=== PATIENT | female | born 1935 | race Asian ===

== ENCOUNTER 2017-12-27 20:42 | Inpatient (IN) | payer OTHER ==
[~2017-12-27] VITALS: Ht 152.4 cm; Wt 59.9 kg
--- NOTE | 2017-12-27 20:44 | NUR ---
Dr. Tolentino evaluating patient at bedside.
--- NOTE | 2017-12-27 20:44 | NUR ---
Patient BIBA ACLS accompanied by LACoFD, transferred to bed 10. RN evaluating patient at bedside.
[2017-12-27 20:45] VITALS: BP 190/81
--- NOTE | 2017-12-27 20:45 | NUR ---
PT YINKA 911 was called per VISIT AT urgent care WHERE PATIENT WAS INCREASINGLY SOB, nebs x 2 en route. WHEN EMS ARRIVED PT WAS 96% ON RA. DAUGHTER states pt has had a recent cold. ON ARRIVAL TO HOSPITAL PT IS A/OX3, WITH LABORED BREATHING AND RHONCHI AND WHEEZES THROUGHOUT BILAT LUNGS UPPER AND LOWER LOBES. NOT ORIENTED TO YEAR DUE TO DEMENTIA WHICH IS BASELINE FOR PT. RT CALLED WIRELESS NETWORK ENGINEER AND WERE AWAITING PT ARRIVAL. Hx: COPD, DEMENTIA, HTN PT DENIES N/V/D; SKIN IS INTACT, PINK/WARM/DRY; AAOX3, PERRL, USES WHEELCHAIR; HR TACHYCARDIC, BL PERIPHERAL PULSES PRESENT; BS ACTIVE X4, NO TENDERNESS TO PALPATION, NO HEPATOSPLENOMEGALLY PALPATED, RESONANT TO PERCUSSION; PT DENIES ANY FEVER, CP, ADMITS TO SOB AND COUGH AT THIS TIME; PT STATES 0/10 PAIN AT THIS TIME; VSS; PATIENT POSITIONED FOR COMFORT; HOB ELEVATED; BEDRAILS UP X2; BED DOWN.
[2017-12-27] MEDS ORDERED: ALBUTEROL SULFATE/IPRATROPIU 3 ML SOL IH ONE (20:50)
[2017-12-27] MEDS ORDERED: NACL 0.9% 1,000 ML IV ONE (20:50)
[2017-12-27 21:07] LABS: BASOPHILS # (AUTO) 0.1 K/uL (0.00-0.22); BASOPHILS % (AUTO) 0.7 % (0.0-2.0); EOSINOPHILS # (AUTO) 1.1 K/uL (0-0.4); EOSINOPHILS % (AUTO) 11.1 % (0.0-4.0); HEMATOCRIT 43.2 % (36-48); HEMOGLOBIN 15.1 g/dL (12.0-16.0); LYMPHOCYTES # (AUTO) 1.7 K/uL (2.5-16.5); LYMPHOCYTES % (AUTO) 17.8 % (20.5-51.1); MEAN CORPUSCULAR HEMOGLOBIN 32 pg (27-31); MEAN CORPUSCULAR HGB CONC 35 g/dL (33-37); MEAN CORPUSCULAR VOLUME 90.9 fL (80-94); MONOCYTES # (AUTO) 0.5 K/uL (0.8-1.0); MONOCYTES % (AUTO) 5.7 % (1.7-9.3); NEUTROPHILS # (AUTO) 6.1 K/uL (1.8-7.7); NEUTROPHILS % (AUTO) 64.7 % (42.2-75.2); PLATELET COUNT (AUTO) 289 K/uL (140-450); RED BLOOD CELL COUNT(AUTO) 4.75 MIL/uL (4.20-5.40); RED CELL DISTRIBUTION WIDTH 12.3 % (11.6-13.7); WHITE BLOOD COUNT (AUTO) 9.5 K/uL (4.8-10.8)
[2017-12-27] MEDS ORDERED: PRON INH (21:21)
[2017-12-27] MEDS ORDERED: FLEC100T1 PO (21:21)
[2017-12-27] MEDS ORDERED: FLUT1BLS IH (21:21)
[2017-12-27] MEDS ORDERED: ATOR10TA PO (21:21)
[2017-12-27] MEDS ORDERED: RALO60TA PO (21:21)
[2017-12-27] MEDS ORDERED: DABI150C PO (21:21)
[2017-12-27] MEDS ORDERED: EXE9.5T TP (21:21)
[2017-12-27] MEDS ORDERED: MONT10TA35 PO (21:21)
[2017-12-27] MEDS ORDERED: UMEC62.5 IH (21:21)
[2017-12-27] MEDS ORDERED: HYDR-3298 PO (21:21)
[2017-12-27] MEDS ORDERED: ALBU0.0912 IH (21:21)
[2017-12-27 21:24] LABS: ANION GAP 15.3 (8-16); CARBON DIOXIDE 29.4 mmol/L (21-32); CHLORIDE 95 mmol/L (98-107); CREATININE 0.8 mg/dL (0.6-1.3); GLUCOSE 123 mg/dL (74-106); POTASSIUM 3.7 mmol/L (3.5-5.1); SODIUM SERUM 136 mmol/L (136-145); UREA NITROGEN, BLOOD 13 mg/dL (7-18)
[2017-12-27 21:30] LABS: ALBUMIN 3.6 g/dL (3.4-5.0); ASPARTATE AMINOTRANSFERASE 24 U/L (15-37); TOTAL BILIRUBIN 0.7 mg/dL (0.0-1.0)
--- NOTE | 2017-12-27 21:30 | NUR ---
PT STILL HAS LABORED BREATHING AFTER ONE TREATMENT, EDMD AWARE. 95% ON ROOM AIR.
[2017-12-27] MEDS ORDERED: LEVOFLOXACIN 750 MG/D5W PREMIX 150 ML IV ONE (21:55)
[2017-12-27] MEDS: NACL 0.9% 1,000 ML IV SCH (21:58)
[2017-12-27] MEDS ORDERED: ACETAMINOPHEN 325 MG TAB PO PRN (22:00)
[2017-12-27] MEDS ORDERED: DOCUSATE SODIUM 100 MG GELCAP PO PRN (22:00)
[2017-12-27] MEDS ORDERED: ZOLPIDEM 5 MG TAB PO PRN (22:00)
[2017-12-27] MEDS ORDERED: HYDROcodone/APAP 7.5/325 MG 1 TAB PO PRN (22:00)
[2017-12-27] MEDS ORDERED: MORPHINE SULFATE 2 MG/ML SYR IVP PRN (22:00)
[2017-12-27] MEDS ORDERED: LORazepam 0.5 MG TAB PO PRN (22:00)
--- NOTE | 2017-12-27 22:30 | NUR ---
Patient will be admitted to care of DR. MELCHOR. Admited to [facility]. Will go to [facility] [address]. Belongings list completed. Report to DIANDRA EISENBERG.
--- NOTE | 2017-12-27 22:30 | NUR ---
REPORT RECEIVED FROM ED NURSE. PT IN STABLE CONDITION. HEART SOUNDS NORMAL. LUNG SOUNDS RHONCHI DURING INSPIRATION AND EXPIRATION. BOWEL SOUNDS ACTIVE X4 QUADRANTS. AAOX2. INTRODUCED SELF TO PT AND UPDATED BOARD. IV SITE PATENT AND INTACT. SKIN WARM, DRY AND INTACT WITH NO OPEN WOUNDS. VS STABLE WITH NO SOB. INTERMITTENT COUGHING THAT IS PRODUCTIVE. BED LOCKED IN LOW POSITION. CALL MARTIN WITHIN REACH. WILL CONTINUE TO MONITOR.
[2017-12-27 22:48] VITALS: BP 152/75
[2017-12-27 22:56] LABS: CHOL/HDL RATIO 1.7 (1-4.5); FREE T4 (FREE THYROXINE) 1.44 ng/dL (0.76-1.46); MAGNESIUM 1.9 mg/dL (1.8-2.4); PHOSPHORUS 4.2 mg/dL (2.5-4.9); THYROID STIMULATING HORMONE 1.24 uIU/mL (0.34-3.74)
--- NOTE | 2017-12-27 23:00 | NUR ---
NS BAG HUNG. LEVAQUIN FIRST DOSE FROM ER GIVEN TO HANG. PT TOLERATING WELL.
[2017-12-27 23:16] LABS: PROTHROMBIN TIME 11.2 secs (10.8-13.4)
[2017-12-28] VITALS: BP 149/78
[2017-12-28 00:15] LABS: APPEARANCE,URINE SL CLOUDY (CLEAR); BILIRUBIN,URINE NEGATIVE (NEGATIVE); BLOOD, URINE 2+ (NEGATIVE); COLOR,URINE YELLOW (YELLOW); LEUKOCYTE ESTERASE ,URINE TRACE (NEGATIVE); NITRITE, URINE POSITIVE (NEGATIVE); UGLUCOSE NEGATIVE (NEGATIVE)
[2017-12-28 00:26] LABS: BARBITURATE, URINE NEG. ng/ml (NEG <=200); BENZODIAZEPINE, URINE NEG. ng/mL (NEG <=200); CANNABINOID, URINE NEG. ng/mL (NEG <=50); COCAINE, URINE NEG. ng/mL (NEG <=300); OPIATE, URINE NEG. ng/mL (NEG <=2000); PHENCYCLIDINE SCREEN,URINE NEG. ng/mL (NEG <=25)
[2017-12-28 00:44] LABS: RBC,URINE 3-10 (FEW) /HPF (0-5)
--- NOTE | 2017-12-28 01:00 | NUR ---
PT PULLED OUT IV. CANNULA INTACT.
--- NOTE | 2017-12-28 01:45 | NUR ---
NEW IV STARTED ON PT. 3 ATTEMPTS MADE. ROBERT EISENBERG SUCCESSFUL IN IV START. IV SITE 20G LEFT WRIST. PT TOLERATED WELL.
--- NOTE | 2017-12-28 02:30 | NUR ---
PT CONFUSED AND GETS UP EVEN WHEN TOLD TO TELL US WHEN NEEDING TO USE THE RESTROOM. BED ALARM ON.
[2017-12-28 04:00] VITALS: BP 148/76
--- NOTE | 2017-12-28 04:30 | NUR ---
PT ASLEEP COMFORTABLY IN BED. CHEST EXPANSION VISIBLE. PT NOT IN ANY ACUTE DISTRESS. WILL CONTINUE TO MONITOR.
[2017-12-28 06:13] LABS: BASOPHILS % (AUTO) 0.3 % (0.0-2.0); EOSINOPHILS % (AUTO) 0.1 % (0.0-4.0); HEMATOCRIT 39.8 % (36-48); LYMPHOCYTES # (AUTO) 0.6 K/uL (2.5-16.5); LYMPHOCYTES % (AUTO) 11.8 % (20.5-51.1); MEAN CORPUSCULAR HEMOGLOBIN 32 pg (27-31); MEAN CORPUSCULAR HGB CONC 35 g/dL (33-37); MEAN CORPUSCULAR VOLUME 90.8 fL (80-94); MONOCYTES % (AUTO) 0.8 % (1.7-9.3); NEUTROPHILS # (AUTO) 4.4 K/uL (1.8-7.7); PLATELET COUNT (AUTO) 259 K/uL (140-450); RED BLOOD CELL COUNT(AUTO) 4.38 MIL/uL (4.20-5.40); RED CELL DISTRIBUTION WIDTH 12.1 % (11.6-13.7); WHITE BLOOD COUNT (AUTO) 5.1 K/uL (4.8-10.8)
[2017-12-28 06:30] LABS: ANION GAP 12.4 (8-16); CARBON DIOXIDE 28.2 mmol/L (21-32); CHLORIDE 99 mmol/L (98-107); CREATININE 0.8 mg/dL (0.6-1.3); GLUCOSE 149 mg/dL (74-106); POTASSIUM 3.6 mmol/L (3.5-5.1); SODIUM SERUM 136 mmol/L (136-145); UREA NITROGEN, BLOOD 10 mg/dL (7-18)
[2017-12-28 06:36] LABS: MAGNESIUM 1.8 mg/dL (1.8-2.4); PHOSPHORUS 3.5 mg/dL (2.5-4.9)
--- NOTE | 2017-12-28 07:16 | NUR ---
REPORT GIVEN TO AM NURSE. PT IN STABLE CONDITION.
--- NOTE | 2017-12-28 07:17 | NUR ---
RECEIVED REPORT FROM CLINICAL EXERCISE SPECIALIST RN. PATIENT IS AWAKE AND ALERT. NO SIGNS AND SYMPTOMS OF ACUTE DISTRESS NOTED AT THIS TIME. HAS IV TO THE LEFT WRIST 20G, INFUSING NS AT 70 ML/HR. SITE IS CLEAN, DRY, PATENT AND INTACT. PATIENT AMBULATES TO THE RESTROOM. DISCUSSED PLAN OF CARE WITH PATIENT AND SHE VERBALIZED UNDERSTANDING. BED IN LOWEST POSITION, SIDE RAILS UP X2, CALL LIGHT WITHIN REACH. WILL CONTINUE TO MONITOR.
[2017-12-28] MEDS: ALBUTEROL SULFATE/IPRATROPIU 3 ML SOL IH SCH ×3 (07:47→19:50)
[2017-12-28 08:00] VITALS: BP 163/86
--- NOTE | 2017-12-28 08:38 | NUR ---
PATIENT HAS BEEN SCREENED AND CATEGORIZED MODERATE NUTRITION RISK. PATIENT WILL BE SEEN WITHIN 3-5 DAYS OF ADMISSION. 12/30/17 01/01/[address]
[2017-12-28] MEDS: MONTELUKAST SODIUM 10 MG TAB PO SCH (08:51)
[2017-12-28] MEDS: DABIGATRAN ETEXILATE MESYLAT 75 MG CAP PO SCH ×2 (08:51→20:51)
[2017-12-28] MEDS: HYDROCHLOROTHIAZIDE 25 MG TAB PO SCH (08:52)
[2017-12-28] MEDS: ATORVASTATIN 20 MG TAB PO SCH (08:52)
[2017-12-28] MEDS: RALOXIFENE 60 MG TAB PO SCH (08:52)
[2017-12-28] MEDS: LACTOBACILLUS RHAMNOSUS GG 1 EACH CAP PO SCH (08:52)
[2017-12-28] MEDS: LOSARTAN 50 MG TAB PO SCH (08:52)
--- NOTE | 2017-12-28 10:30 | NUR ---
AWAKE AND ALERT RESPONSIVE TO CREDENTIALING ASSISTANT VERBAL COMMANDS TOLERATED INCENTIVE SPIROMETRY THERAPY WELL WITHOUT INCIDENT ENCOURAGEMENT PATIENT WITH ACKNOWLEDGEMENT TO USE EVERY 1-2 HOURS WHILE AWAKE PLACED SPECIMEN CUP AT BEDSIDE FOR SPUTUM COLLECTION CREDENTIALING ASSISTANT TO NOTIFY RN
[2017-12-28 12:00] VITALS: BP 132/69
--- NOTE | 2017-12-28 14:03 | NUR ---
PATIENT IN BATHROOM AT THIS TIME BETTING AGENCY COUNTER CLERK TO ATTEMPT HHN THERAPY AT A LATER TIME
[2017-12-28] MEDS ORDERED: METOPROLOL SUCCINATE 50 MG TABER PO SCH (15:48)
[2017-12-28 16:00] VITALS: BP 139/69
--- NOTE | 2017-12-28 19:25 | NUR ---
ENDORSED PATIENT TO CRIME SCENE INVESTIGATOR RN FOR CONTINUITY OF CARE. PATIENT IN STABLE CONDITION.
--- NOTE | 2017-12-28 19:25 | NUR ---
RECEIVED REPORT FROM LARRY EISENBERG FOR TRANSFER OF CARE AT BEDSIDE. PT IN STABLE CONDITION. PT IS AO X 2-3, SHE IS SITTING UP IN A LOW BED WITH IV SITE ON L WRIST 20G THAT IS ASYMPTOMATIC. PT RUNNING NS AT 70 MLS/HR. SHE HAS NO S/S OF PAIN OR DISTRESS NOTED. PT IN LOW BED SIDE RAILS UP X2 AND CALL MARTIN IN REACH.
[2017-12-28 20:00] VITALS: BP 140/74
[2017-12-29] VITALS: BP 125/58
[2017-12-29 04:00] VITALS: BP 167/81
[2017-12-29 06:15] LABS: T4 (THYROXINE) 10.1 ug/dL (4.5-12.0)
[2017-12-29 07:44] LABS: BASOPHILS % (AUTO) 0.5 % (0.0-2.0); EOSINOPHILS # (AUTO) 0.6 K/uL (0-0.4); EOSINOPHILS % (AUTO) 5.8 % (0.0-4.0); HEMATOCRIT 39.4 % (36-48); HEMOGLOBIN 14.1 g/dL (12.0-16.0); LYMPHOCYTES # (AUTO) 2.3 K/uL (2.5-16.5); LYMPHOCYTES % (AUTO) 23.8 % (20.5-51.1); MEAN CORPUSCULAR HEMOGLOBIN 33 pg (27-31); MEAN CORPUSCULAR HGB CONC 36 g/dL (33-37); MEAN CORPUSCULAR VOLUME 91.1 fL (80-94); MONOCYTES # (AUTO) 0.9 K/uL (0.8-1.0); MONOCYTES % (AUTO) 9.3 % (1.7-9.3); NEUTROPHILS # (AUTO) 5.9 K/uL (1.8-7.7); NEUTROPHILS % (AUTO) 60.6 % (42.2-75.2); PLATELET COUNT (AUTO) 268 K/uL (140-450); RED BLOOD CELL COUNT(AUTO) 4.33 MIL/uL (4.20-5.40); RED CELL DISTRIBUTION WIDTH 12.2 % (11.6-13.7); WHITE BLOOD COUNT (AUTO) 9.7 K/uL (4.8-10.8)
--- NOTE | 2017-12-29 07:45 | NUR ---
ASSUMED CONTINUITY OF CARE. NO SIGNS AND SYMPTOMS OF ACUTE DISTRESS NOTICED. INITIAL ASSESSMENT DONE. RE-ORIENTED TO EVENTS AND SURROUNDINGS. KEEP COMFORTABLE ON BED. EXPLAINED DIAGNOSIS, PLAN OF CARE, PAIN MANAGEMENT TEACHING, USE OF CALL LIGHT/BED/TV/BATHROOM. VERBALIZED UNDERSTANDING. CALL LIGHT WITHIN REACH.
[2017-12-29 07:56] LABS: ANION GAP 12.2 (8-16); CARBON DIOXIDE 28.2 mmol/L (21-32); CHLORIDE 102 mmol/L (98-107); CREATININE 0.9 mg/dL (0.6-1.3); GLUCOSE 108 mg/dL (74-106); POTASSIUM 3.4 mmol/L (3.5-5.1); SODIUM SERUM 139 mmol/L (136-145); UREA NITROGEN, BLOOD 14 mg/dL (7-18)
[2017-12-29 08:00] VITALS: BP 144/75
[2017-12-29 08:05] LABS: PHOSPHORUS 3.6 mg/dL (2.5-4.9)
[2017-12-29] MEDS: ALBUTEROL SULFATE/IPRATROPIU 3 ML SOL IH SCH ×3 (08:33→21:19)
[2017-12-29] MEDS: LOSARTAN 50 MG TAB PO SCH (08:53)
[2017-12-29] MEDS: LACTOBACILLUS RHAMNOSUS GG 1 EACH CAP PO SCH (08:55)
[2017-12-29] MEDS: METOPROLOL SUCCINATE 50 MG TABER PO SCH (08:55)
[2017-12-29] MEDS: RALOXIFENE 60 MG TAB PO SCH (08:56)
[2017-12-29] MEDS: HYDROCHLOROTHIAZIDE 25 MG TAB PO SCH (08:56)
[2017-12-29] MEDS: MONTELUKAST SODIUM 10 MG TAB PO SCH (08:56)
[2017-12-29] MEDS: ATORVASTATIN 20 MG TAB PO SCH (08:56)
[2017-12-29] MEDS: DABIGATRAN ETEXILATE MESYLAT 75 MG CAP PO SCH ×2 (09:01→20:35)
--- NOTE | 2017-12-29 09:10 | NUR ---
PHYSICAL THERAPIST SURAJ CAME FOR PT. EVAL AND TREATMENT.
[2017-12-29] MEDS: NACL 0.9% 1,000 ML IV SCH ×2 (09:23→10:58)
--- NOTE | 2017-12-29 11:35 | NUR ---
WENT TO BATHROOM WITHOUT ASSISTANCE. TOLERATED WELL. NO C/O PAIN. NO SOB, NOTED.
[2017-12-29 12:00] VITALS: BP 134/71
--- NOTE | 2017-12-29 12:56 | NUR ---
PHYSICAL THERAPY CO-SIGN The Physical Therapy Progress Notes documented by Customer Consultant have been reviewed. I CONCUR W/EMOTIONALLY IMPAIRED TEACHER NOTE; CONT PER TX PLAN Reviewed/Co-Signed by: Katelyn Soler, PT Documentation Done by: DEANNA MCALLISTER PTA Addendum: 12/29/17 at 1257 by Katelyn Soler PT Amended: Links added.
[2017-12-29 16:00] VITALS: BP 133/77
[2017-12-29] MEDS ORDERED: POTASSIUM CHLORIDE 10 MEQ TABER PO SCH (16:00)
--- NOTE | 2017-12-29 19:18 | NUR ---
REPORT GIVEN TO DAJUAN VELEZ. IVF INFUSING WELL. IN STABLE CONDITION.
[2017-12-29 20:00] VITALS: BP 137/66
[2017-12-29] MEDS ORDERED: LEVOFLOXACIN 750 MG/D5W PREMIX 150 ML IV SCH (22:00)
[2017-12-30] VITALS (7 sets, daily range): BP systolic 140–163; BP diastolic 75–95
--- NOTE | 2017-12-30 01:47 | NUR ---
RECEIVED REPORT FROM DAJUAN EISENBERG.PT IS IN STABLE CONDITION.NO S/S OF ANY DISTRESS NOTED AT THIS TIME.WILL CONTINUE MONITORING.
[2017-12-30] MEDS: ALBUTEROL SULFATE/IPRATROPIU 3 ML SOL IH PRN ×2 (03:47→08:34)
[2017-12-30] MEDS: methylPREDNISolone SS 40 MG/ML VIAL IVP SCH ×3 (06:29→21:09)
--- NOTE | 2017-12-30 06:53 | NUR ---
CONDITION STABLE.O2 SAT IS BETWEEN 97 TO 99% IN RA.NO RESP.DISTRESS NOTED.IVF IS IN PROGRESS.
[2017-12-30] MEDS: ALBUTEROL SULFATE/IPRATROPIU 3 ML SOL IH SCH ×3 (07:00→19:00)
[2017-12-30] MEDS: BUDESONIDE 0.25 MG/2 ML NEBU INH SCH ×2 (07:04→19:30)
--- NOTE | 2017-12-30 07:30 | NUR ---
RECEIVED REPORT FROM INFORMATION SYSTEMS ARCHITECT RN. PATIENT IS IN STABLE CONDITION. AAOX3. IV SITE PATENT AND ASYMPTOMATIC, RUNNING IVF PER MD ORDERS. LUNGS CTA IN ALL SEN. HEART RHYTHM REGULAR, S1 AND S2 NOTED. ABDOMEN SOFT AND NON-DISTENDED. NO COMPLAINTS OF PAIN AT THIS TIME. ALL SAFETY MEASURES IN PLACE, CALL LIGHT WITHIN REACH. SKIN IS INTACT. WILL CONTINUE TO MONITOR.
[2017-12-30 07:44] LABS: BASOPHILS # (AUTO) 0.1 K/uL (0.00-0.22); BASOPHILS % (AUTO) 0.8 % (0.0-2.0); EOSINOPHILS # (AUTO) 1.4 K/uL (0-0.4); EOSINOPHILS % (AUTO) 14.1 % (0.0-4.0); HEMATOCRIT 38.7 % (36-48); HEMOGLOBIN 13.5 g/dL (12.0-16.0); LYMPHOCYTES # (AUTO) 1.7 K/uL (2.5-16.5); MEAN CORPUSCULAR HEMOGLOBIN 32 pg (27-31); MEAN CORPUSCULAR HGB CONC 35 g/dL (33-37); MEAN CORPUSCULAR VOLUME 91.2 fL (80-94); MONOCYTES # (AUTO) 0.9 K/uL (0.8-1.0); NEUTROPHILS % (AUTO) 59.1 % (42.2-75.2); PLATELET COUNT (AUTO) 259 K/uL (140-450); RED BLOOD CELL COUNT(AUTO) 4.24 MIL/uL (4.20-5.40); RED CELL DISTRIBUTION WIDTH 12.2 % (11.6-13.7); WHITE BLOOD COUNT (AUTO) 10.2 K/uL (4.8-10.8)
[2017-12-30 07:47] LABS: ANION GAP 11.3 (8-16); CHLORIDE 97 mmol/L (98-107); CREATININE 0.7 mg/dL (0.6-1.3); GLUCOSE 106 mg/dL (74-106); POTASSIUM 3.3 mmol/L (3.5-5.1); SODIUM SERUM 134 mmol/L (136-145); UREA NITROGEN, BLOOD 10 mg/dL (7-18)
[2017-12-30 07:59] LABS: MAGNESIUM 1.7 mg/dL (1.8-2.4); PHOSPHORUS 3.5 mg/dL (2.5-4.9)
[2017-12-30] MEDS ORDERED: POTASSIUM CHLORIDE 10 MEQ TABER PO SCH ×2 (08:09→16:00)
[2017-12-30] MEDS: ATORVASTATIN 20 MG TAB PO SCH (08:32)
[2017-12-30] MEDS: MONTELUKAST SODIUM 10 MG TAB PO SCH (08:32)
[2017-12-30] MEDS: RALOXIFENE 60 MG TAB PO SCH (08:32)
[2017-12-30] MEDS: METOPROLOL SUCCINATE 50 MG TABER PO SCH (08:33)
[2017-12-30] MEDS: LACTOBACILLUS RHAMNOSUS GG 1 EACH CAP PO SCH (08:33)
[2017-12-30] MEDS: LOSARTAN 50 MG TAB PO SCH (08:34)
[2017-12-30] MEDS: HYDROCHLOROTHIAZIDE 25 MG TAB PO SCH (08:34)
--- NOTE | 2017-12-30 08:34 | NUR ---
PATIENT COMPLAINING OF SHORTNESS OF BREATH. BILATERAL WHEEZING NOTED. RT NOTIFIED AND BREATHING TX ADMINISTERED. AFTER BREATHING TX, SCHEDULED MEDICATIONS GIVEN PER MD ORDERS. ALL SAFETY MEASURES ARE IN PLACE. CALL LIGHT IS WITHIN REACH. WILL CONTINUE TO MONITOR.
[2017-12-30] MEDS: NACL 0.9% 1,000 ML IV SCH (08:39)
[2017-12-30] MEDS: DABIGATRAN ETEXILATE MESYLAT 75 MG CAP PO SCH ×2 (08:47→21:09)
--- NOTE | 2017-12-30 10:50 | NUR ---
PATIENT IN BED, SPEAKING WITH FAMILY ON PHONE. NO SIGNS OF DISTRESS. WILL CONTINUE TO MONITOR.
--- NOTE | 2017-12-30 12:55 | NUR ---
SCHEDULED MEDICATIONS GIVEN AT THIS TIME. PATIENT DENIES PAIN. ALL SAFETY MEASURES IN PLACE. WILL CONTINUE TO MONITOR. Addendum: 12/30/17 at 1354 by Bernice Parker Meng, RN DENIES SHORTNESS OF BREATH.
--- NOTE | 2017-12-30 13:45 | NUR ---
PT SITTING IN CHAIR PT HAS REFUSED BREATHING TX NO SIGNS OF DISTRESS NOTED AND FAINA LARSEN NOTIFIED
--- NOTE | 2017-12-30 15:52 | NUR ---
PT SITTING IN BED, SPEAKING TO FAMILY ON THE PHONE. NO S/S OF RESPIRATORY DISTRESS NOTED. CALL LIGHT IN REACH.
[2017-12-30] MEDS ORDERED: MAG SULF 2000 MG/WATER PREMIX 50 ML IV SCH (16:00)
--- NOTE | 2017-12-30 18:10 | NUR ---
NOTIFIED PT BP 163/94, NO SYMPTOMS, NO HEADACHE, NO DIZZINESS.
[2017-12-30] MEDS ORDERED: HYDROCHLOROTHIAZIDE 25 MG TAB PO ONE (18:30)
--- NOTE | 2017-12-30 19:00 | NUR ---
RECEIVED PT FROM MARK RN PT AAOX3 AMBULATORY IV ON RT HAND INFUSING WELL TKO, ON TELEMETRY ST WHEEZING, PRODUCTIVE COUGH NOT SOB NOTED INNTIAL ASSESSMENT DONE
--- NOTE | 2017-12-30 22:00 | NUR ---
PT AMBULATES TO THE RESTROOM VIDING WELL PRODUCTIVE COUGH NOT SOB NOTED
[2017-12-31] VITALS: BP 150/77
--- NOTE | 2017-12-31 01:00 | NUR ---
PT SLEEPING WELL NOT DISTRESS NOTED ON TELEMETRY SR REMAIN SATABLE AT THIS TIME
[2017-12-31 04:00] VITALS: BP 139/78
[2017-12-31] MEDS: methylPREDNISolone SS 40 MG/ML VIAL IVP SCH ×2 (04:52→12:50)
--- NOTE | 2017-12-31 04:56 | NUR ---
SPONGE BATH GIVEN LINEN CHANGED PT CAME BACK TO SLEEP NOT DISTRESS NOTED
[2017-12-31] MEDS: NACL 0.9% 1,000 ML IV SCH (05:23)
--- NOTE | 2017-12-31 06:13 | NUR ---
PT RESTING ON BED DENIES ANY PAIN R SOB ON TELEMETRY SR PT WILL BE ENDORSED TO DAY SHIFT NURSE FOR CONTINUITY OF CARE
[2017-12-31] MEDS: ALBUTEROL SULFATE/IPRATROPIU 3 ML SOL IH SCH ×2 (07:01→13:37)
[2017-12-31] MEDS: BUDESONIDE 0.25 MG/2 ML NEBU INH SCH (07:10)
--- NOTE | 2017-12-31 07:30 | NUR ---
RECEIVED REPORT FROM PM NURSE, PT SLEEPING BUT EASILY AWAKING, ON ROOM AIR, NO S/S OF RESPIRATORY DISTRESS NOTED. PT HAS IV RUNNING NS AT KTO 5 MLS/HR. PT ABLE TO AMBULATE, POC EXPLAINED TO PT, PT VERBALIZED UNDERSTANDING, CALL LIGHT IN REACH, SAFETY MEASURES IN PLACE, HOB ELEVATED 30 DEGREES WITH LOW BED POSITION, WILL CONTINUE TO MONITOR.
[2017-12-31 08:00] VITALS: BP 161/74
[2017-12-31] MEDS: LACTOBACILLUS RHAMNOSUS GG 1 EACH CAP PO SCH (08:50)
[2017-12-31] MEDS: LOSARTAN 50 MG TAB PO SCH (08:50)
[2017-12-31] MEDS: METOPROLOL SUCCINATE 50 MG TABER PO SCH (08:51)
[2017-12-31] MEDS: MONTELUKAST SODIUM 10 MG TAB PO SCH (08:52)
[2017-12-31] MEDS: RALOXIFENE 60 MG TAB PO SCH (08:52)
[2017-12-31] MEDS: ATORVASTATIN 20 MG TAB PO SCH (08:52)
[2017-12-31] MEDS: DABIGATRAN ETEXILATE MESYLAT 75 MG CAP PO SCH (08:53)
[2017-12-31] MEDS ORDERED: HYDROCHLOROTHIAZIDE 25 MG TAB PO SCH (09:00)
--- NOTE | 2017-12-31 09:00 | NUR ---
DUE MEDS GIVEN, PT TOLERATED WELL.
[2017-12-31 09:03] LABS: BASOPHILS % (AUTO) 0.1 % (0.0-2.0); HEMATOCRIT 44.3 % (36-48); HEMOGLOBIN 15.7 g/dL (12.0-16.0); LYMPHOCYTES # (AUTO) 1.1 K/uL (2.5-16.5); LYMPHOCYTES % (AUTO) 14.2 % (20.5-51.1); MEAN CORPUSCULAR HEMOGLOBIN 32 pg (27-31); MEAN CORPUSCULAR HGB CONC 36 g/dL (33-37); MEAN CORPUSCULAR VOLUME 89.4 fL (80-94); MONOCYTES # (AUTO) 0.3 K/uL (0.8-1.0); MONOCYTES % (AUTO) 3.7 % (1.7-9.3); NEUTROPHILS # (AUTO) 6.6 K/uL (1.8-7.7); PLATELET COUNT (AUTO) 304 K/uL (140-450); RED BLOOD CELL COUNT(AUTO) 4.95 MIL/uL (4.20-5.40)
[2017-12-31 09:32] LABS: MAGNESIUM 2.6 mg/dL (1.8-2.4); PHOSPHORUS 4.5 mg/dL (2.5-4.9)
[2017-12-31 09:33] LABS: CARBON DIOXIDE 31.2 mmol/L (21-32); CHLORIDE 91 mmol/L (98-107); CREATININE 0.9 mg/dL (0.6-1.3); GLUCOSE 122 mg/dL (74-106); POTASSIUM 4.2 mmol/L (3.5-5.1); SODIUM SERUM 130 mmol/L (136-145); UREA NITROGEN, BLOOD 13 mg/dL (7-18)
[2017-12-31] MEDS ORDERED: METH4TAB1 PO (11:40)
[2017-12-31 12:00] VITALS: BP 138/66
--- NOTE | 2017-12-31 12:05 | NUR ---
PT SITTING AT BEDSIDE EATING LUNCH, NO S/S OF RESPIRATORY DISTRESS NOTED.PT STATED SHE IS FINE.
[2017-12-31] MEDS ORDERED: PNEUMOCOCCAL VACCINE 23 MCG/0.5 ML VIAL IMVAC SCH (14:45)
--- NOTE | 2017-12-31 15:00 | NUR ---
PNA VAC GIVEN, PT TOLERATED WELL, NO DISCOMFORT NOTED, DAUGHTER AT BEDSIDE.
--- NOTE | 2017-12-31 15:15 | NUR ---
PT AWAKE, ALERT, AND ORIENTED. ON ROOM AIR, NO S/S OF RESPIRATORY DISTRESS NOTED. O2 SATS 95%.PT SIGNED DISCHARGE PAPER AND INSTRUCTION GIVEN, PRESCRIPTION GIVEN, TOLD PT TO VISIT PCP IN 3-5 DAYS, PT VERBALIZED UNDERSTANDING. IV REMOVED, CANNULA INTACT, ALL PERSONAL BELONGINGS WITH PT, PT'S DAUGHTER WILL GIVE PT A RIDE AND DAUGHTER AT BEDSIDE, OFFERED PT WHEELCHAIR, PT REFUSED, PT LEFT UNIT IN STABLE CONDITION.
== END 2017-12-31 15:15 | disposition home or self-care (01) | DRG 871 ==
LOC: MED 20:42 → MTU 21:58
PROVIDERS: ADMIT General Practice; ATTEND General Practice
PROC: 3E0234Z Introduction of Serum, Toxoid and Vaccine into Muscle, Percutaneous Approach (ICD-10-PCS; principal; 2017-12-31)
DX: A41.9 Sepsis, unspecified organism (principal); G93.41 Metabolic encephalopathy; J44.1 Chronic obstructive pulmonary disease with (acute) exacerbation; J45.901 Unspecified asthma with (acute) exacerbation; N39.0 Urinary tract infection, site not specified; E87.1 Hypo-osmolality and hyponatremia; G30.9 Alzheimer's disease, unspecified; F02.80 Dementia in other diseases classified elsewhere, unspecified severity, without behavioral disturbance, psychotic disturbance, mood disturbance, and anxiety; M81.0 Age-related osteoporosis without current pathological fracture; I16.0 Hypertensive urgency; E87.6 Hypokalemia; E83.42 Hypomagnesemia; I10 Essential (primary) hypertension; Z23 Encounter for immunization; Z79.899 Other long term (current) drug therapy; Z90.710 Acquired absence of both cervix and uterus
CPT/HCPCS: 36415; 36600; 71045; 76770; 80048; 80053; 80305; 81001; 82150; 82803; 83036; 83605; 83690; 83735; 83880; 84100; 84436; 84439; 84443; 84479; 84484; 85025; 85610; 85730; 87040; 87081; 87086; 87186; 90732; 93005; 94640; 96360; 97116; 97530; 99285; J1956; J2920; J3475; J7030; J7620; J7626; Q0092